=== PATIENT | female | born 1965 | race Caucasian/White ===

== ENCOUNTER → 2017-06-16 | Outpatient (CLI) | payer MEDICARE ==
[~2017-06-16] MED LIST: ADDE30TA PO; ALBU0.63 NEB; CYMB60CA PO; DEXI60CA3 PO; GABA250S PO; GABA800T PO; HYDR-3366 PO; LORA-392 PO; LORA0.5T PO; LORC10TA PO; LYRI50CA PO; LYRI50CA2 PO; OMEP20TA PO; OMEP20TA93 PO; OXYC1TAB36 PO; PERC10TA26 PO; PROM12.54 PO; PROM6.2518 PO; PROT40TA PO; VENTAER INH
[2017-06-16 10:05] LABS: AUTOMATED NEUTROPHIL # 5.6 TH/MM3 (1.8-7.7); BASOPHIL # 0.1 TH/MM3 (0-0.2); BASOPHIL % 0.8 % (0.0-2.0); EOSINOPHIL # 0.2 TH/MM3 (0-0.4); EOSINOPHIL % 2.9 % (0.0-4.0); HEMATOCRIT 38.2 % (35.0-46.0); HEMOGLOBIN 13.1 GM/DL (11.6-15.3); LYMPH % 17.3 % (9.0-44.0); LYMPHOCYTE # 1.3 TH/MM3 (1.0-4.8); MEAN CELL VOLUME 94.2 FL (80.0-100.0); MEAN CORPUSCULAR HEMOGLOBIN 32.4 PG (27.0-34.0); MEAN CORPUSCULAR HGB CONC 34.4 % (32.0-36.0); MONO % 5.7 % (0.0-8.0); MONOCYTE # 0.4 TH/MM3 (0-0.9); NEUT % 73.3 % (16.0-70.0); PLATELET COUNT 340 TH/MM3 (150-450); RED BLOOD COUNT 4.05 MIL/MM3 (4.00-5.30); RED CELL DISTRIBUTION WIDTH 13.8 % (11.6-17.2); WHITE BLOOD COUNT 7.6 TH/MM3 (4.0-11.0)
[2017-06-16 10:18] LABS: INTERNATIONAL NORMALIZED RATIO 0.9 RATIO; PROTHROMBIN TIME - PATIENT 9.4 SEC (9.8-11.6)
[2017-06-16 10:21] LABS: BILIRUBIN, URINE NEG (NEG); BLOOD, URINE NEG (NEG); GLUCOSE,URINE NEG (NEG); KETONE, URINE NEG (NEG); NITRITE,URINE NEG (NEG); PH, URINE 5.5 (5.0-8.5); URINE COLOR YELLOW (YELLW/STRAW); URINE LEUKOCYTE ESTERASE NEG (NEG)
[2017-06-16 10:29] LABS: ALBUMIN 3.6 GM/DL (3.4-5.0); ALT (GPT) 25 U/L (10-53); BICARBONATE 28.3 MEQ/L (21.0-32.0); BLOOD UREA NITROGEN 19 MG/DL (7-18); CALCIUM 9.2 MG/DL (8.5-10.1); CHLORIDE 110 MEQ/L (98-107); CREATININE 0.67 MG/DL (0.50-1.00); GLOMERULAR FILTRATION RATE 93 ML/MIN (>89); GLUCOSE,FASTING 94 MG/DL (74-99); SODIUM (NA) 142 MEQ/L (136-145)
--- NOTE | 2017-06-16 10:39 | RADRPT ---
EXAM DATE/TIME: 06/16/2017 10:04 [facility] COMPARISON: No previous studies available for comparison. INDICATIONS : Evaluate for pneumonia, pneumothorax or communicable disease. Pre op for cervical spine surgery 1-2-1 8. MEDICAL HISTORY : Chronic obstructive pulmonary disease. Carcinoma, lung. SURGICAL HISTORY : lower left lobe of lung removed. ENCOUNTER: Initial ACUITY: 1 day PAIN SCORE: 0/10 LOCATION: Bilateral chest FINDINGS: PA and lateral views of the chest demonstrate the lungs to be symmetrically aerated without evidence of mass, infiltrate or effusion. The cardiomediastinal contours are unremarkable. Osseous structure s are intact. Bilateral breast implants are present. CONCLUSION: No acute disease. Matty Wilkerson MD on June 16, 2017 at 10:37 Board Certified Radiologist. This report was verified electronically.
[2017-06-16 10:40] LABS: ALKALINE PHOSPHATASE 88 U/L (45-117); AST (GOT) 22 U/L (15-37); TOTAL BILIRUBIN ADULT 0.3 MG/DL (0.2-1.0); TOTAL PROTEIN 6.9 GM/DL (6.4-8.2)
--- NOTE | 2017-06-16 13:46 | EKG ---
Date Performed: 06/16/2017 Time Performed: 09:29:10 PTAGE: 52 years EKG: Sinus rhythm . Septal T wave changes are nonspecific Borderline ECG NO PREVIOUS TRACING DOCTOR: Amadou Brooks Interpretating Date/Time 06/16/2017 13:45:52
== END ==
LOC: CPRE 09:04
PROVIDERS: ATTEND Neurological Surgery
DX: Z01.812 Encounter for preprocedural laboratory examination (principal); Z01.810 Encounter for preprocedural cardiovascular examination; Z01.811 Encounter for preprocedural respiratory examination; M48.02 Spinal stenosis, cervical region; R94.31 Abnormal electrocardiogram [ECG] [EKG]
CPT/HCPCS: 36415; 71020; 80053; 81001; 85025; 85610; 85730; 93005

== ENCOUNTER 2017-09-24 09:05 | Day surgery (SDC) | payer MEDICARE ==
[~2017-09-24] VITALS: Ht 165.1 cm; Wt 61.7 kg
[~2017-09-24 09:05] MED LIST changes: +ACETAMINOPHEN 1000 MG/100 ML 0 ML IV ONE; +ARTIFICIAL TEARS OPTH OINT 3.5 APPLIC/3.5 GM TUBO ONE; -DEXI60CA3 PO; -GABA250S PO; -LORA-392 PO; -LORC10TA PO; -LYRI50CA2 PO; +MIDAZOLAM HCL 2 MG/2 ML VIAL ONE; -OMEP20TA PO; -PERC10TA26 PO; -PROM6.2518 PO; +PROPOFOL 500 MG/50 ML INJ 50 ML ONE; +SODIUM CHLOR 0.9% 1000 ML INJ 1,000 ML IV SCH
[2017-09-24] MEDS ORDERED: PHENYLEPH/NS 1000 MCG/10 ML SYR IV ONE (09:06)
[2017-09-24] MEDS ORDERED: GLYCOPYRROLATE 1 MG/5 ML SYRINGE IV PUSH ONE (09:06)
[2017-09-24] MEDS ORDERED: ceFAZolin INJ 1,000 MG VIAL IV ONE ×2 (09:06→11:51)
[2017-09-24] MEDS ORDERED: LIDOCAINE HCL 1% PF 5 ML SYRINGE OTHER ONE (09:06)
[2017-09-24] MEDS ORDERED: ONDANSETRON HCL 4 MG/2 ML VIAL IV ONE (09:06)
[2017-09-24] MEDS ORDERED: ROCURONIUM INJ 50 MG/5 ML SYRINGE IV PUSH ONE (09:06)
[2017-09-24] MEDS ORDERED: PROPOFOL 200 MG/20 ML AMP IV ONE (09:06)
[2017-09-24] MEDS ORDERED: LACTATED RINGER'S 1000 ML INJ 2,000 ML IV ONE (09:06)
[2017-09-24] MEDS ORDERED: ePHEDrine/NS 25 MG/5 ML SYRINGE IV ONE (09:06)
[2017-09-24] MEDS ORDERED: KETOROLAC TROMETHAMINE 30 MG/ML (IVP) VIAL IV PUSH ONE (09:06)
[2017-09-24] MEDS ORDERED: DEXAMETHASONE SOD PHOS 4 MG/ML VIAL IV ONE (09:06)
[2017-09-24] MEDS ORDERED: CHLORHEXIDINE GLUCONATE 2 % 1 PACK (2 CLOTHS) TOPICAL PRN (09:30)
[2017-09-24] MEDS ORDERED: POVIDONE IODINE 5% (ANTISEPSIS KIT) 4 APPLICATIONS EACH NARE PRN (09:30)
[2017-09-24] MEDS ORDERED: VANCOMYCIN 1 GM/200 ML PREMIX IV SCH (09:30)
[2017-09-24] MEDS ORDERED: METOPROLOL TARTRATE 25 MG TAB PO PRN (09:30)
[2017-09-24] MEDS ORDERED: SODIUM CHLORID 0.9% 500 ML IV PRN (09:30)
[2017-09-24] MEDS ORDERED: LACTATED RINGER'S 1000 ML IV PRN (09:30)
[2017-09-24 10:15] LABS: PROTHROMBIN TIME - PATIENT 9.7 SEC (9.8-11.6)
[2017-09-24] MEDS ORDERED: ACETAMINOPHEN 1000 MG/100 ML 100 ML IV ONE (10:20)
[2017-09-24] MEDS ORDERED: PROPOFOL 500 MG/50 ML INJ 100 ML ONE (10:20)
[2017-09-24] MEDS ORDERED: ARTIFICIAL TEARS OPTH OINT 3.5 APPLIC/3.5 GM TUBO ONE (10:20)
[2017-09-24 10:23] LABS: BILIRUBIN, URINE NEG (NEG); BLOOD, URINE NEG (NEG); GLUCOSE,URINE NEG (NEG); KETONE, URINE NEG (NEG); MUCUS URINE FEW /lpf (OCC); NITRITE,URINE NEG (NEG); PH, URINE 5.5 (5.0-8.5); URINE COLOR YELLOW (YELLW/STRAW); URINE LEUKOCYTE ESTERASE NEG (NEG)
[2017-09-24] MEDS ORDERED: diphenhydrAMINE HCL 50 MG/ML VIAL ONE (10:55)
[2017-09-24] MEDS ORDERED: GELFOAM SIZE 100 TOPICAL ONE (11:51)
[2017-09-24] MEDS ORDERED: THROMBIN (TOPICAL) 5,000 UNIT VIAL TOPICAL ONE ×2 (11:53→14:02)
[2017-09-24] MEDS ORDERED: MICROFIBRILLAR COLLAGEN HEMOSTAT 70 X 35 MM BANDAGE TOPICAL ONE (11:53)
[2017-09-24] MEDS ORDERED: GENTAMICIN SULFATE 80 MG/2 ML VIAL IRRIGATION ONE (11:54)
[2017-09-24] MEDS ORDERED: BACITRACIN TOP OINT 15 GM TUBE ONE (14:35)
[2017-09-24] MEDS ORDERED: DO NOT ADM ANY ANTICOAGULANT DRUGS PRN (14:50)
[2017-09-24] MEDS ORDERED: *morphine SULFATE 4 MG/ML PERIprocedure ONLY ONE ×3 (15:00→15:13)
[2017-09-24] MEDS ORDERED: MIDAZOLAM HCL 2 MG/2 ML VIAL ONE (15:02)
--- NOTE | 2017-09-24 15:05 | HHI.DCPOC ---
Discharge Care Plan Diagnosis: (1) Status post cervical arthrodesis Goals to Promote Your Health * To prevent worsening of your condition and complications * To maintain your health at the optimal level Directions to Meet Your Goals Take your medications as prescribed Follow your dietary instruction Follow activity as directed Keep your appointments as scheduled Take your immunizations and boosters as scheduled If your symptoms worsen call your PCP, if no PCP go to Urgent Care Center or Emergency Room Smoking is Dangerous to Your Health. Avoid second hand smoke Call the 24-hour hour crisis hotline for domestic abuse at Eboni Hannah Sep 24, 2017 15:05
[2017-09-24] MEDS ORDERED: *MEPERIDINE 25 MG INJ VIAL PERIprocedural Use ONLY ONE (15:13)
--- NOTE | 2017-09-24 15:22 | RADRPT ---
EXAM DATE/TIME: 09/24/2017 11:49 [facility] COMPARISON: No previous studies available for comparison. INDICATIONS : Post-op C4-C5 and C5-C6 artificial disk placement. MEDICAL HISTORY : None. SURGICAL HISTORY : None. ENCOUNTER: Initial ACUITY: 1 day PAIN SCORE: Non-responsive. LOCATION: neck FINDINGS: 2 images recorded digitally the operating room using C-arm after placement of the interspace devices at C4-5 and C5-6. CONCLUSION: Intraoperative images. Tim Maciel MD on September 24, 2017 at 15:19 Board Certified Radiologist. This report was verified electronically.
--- NOTE | 2017-09-24 15:23 | RADRPT ---
EXAM DATE/TIME: 09/24/2017 11:49 [facility] COMPARISON: No previous studies available for comparison. INDICATIONS : C4-C5 and C5-C6 artificial disk placement. Level localization. MEDICAL HISTORY : None. SURGICAL HISTORY : None. ENCOUNTER: Initial ACUITY: 1 day PAIN SCORE: Non-responsive. LOCATION: neck FINDINGS: A single lateral view of the cervical spine is recorded digitally in the operating room using C-arm a nd demonstrating a localization probe at the C5-6 level. CONCLUSION: Intraoperative image. Tim Maciel MD on September 24, 2017 at 15:20 Board Certified Radiologist. This report was verified electronically.
[2017-09-24] MEDS ORDERED: cloNIDine HCL 0.1 MG TAB PO/NG PRN (15:30)
[2017-09-24] MEDS ORDERED: ACETAMINOPHEN 325 MG TAB PO PRN (15:30)
[2017-09-24] MEDS ORDERED: RESP: ALBUTEROL 2.5 MG/3 ML NEB (PRN) INH (15:30)
[2017-09-24] MEDS ORDERED: ONDANSETRON HCL 4 MG/2 ML VIAL IV PRN (15:30)
[2017-09-24] MEDS ORDERED: MENTHOL LOZENGE BUCCAL PRN (15:30)
[2017-09-24] MEDS ORDERED: CYCL10TA PO (15:31)
[2017-09-24] MEDS ORDERED: HYDR-3583 PO (15:31)
[2017-09-24] MEDS ORDERED: IBUP1TAB7 PO (15:31)
[2017-09-24 16:45] VITALS: BP 141/83; PULSE 74; RESP 18; TEMP 97.6; O2SAT 95
[2017-09-24] MEDS ORDERED: MORPHINE SULFATE 2 MG/ML SYRINGE IV PUSH PRN (17:00)
[2017-09-24] MEDS ORDERED: ACETAMINOPHEN/HYDROcodone 325 MG/10 MG TAB PO PRN (17:00)
[2017-09-24] MEDS ORDERED: MAGNESIUM HYDROXIDE SUSP 30 ML CUP PO PRN (17:00)
[2017-09-24] MEDS ORDERED: CYCLOBENZAPRINE HCL 10 MG TAB PO PRN (17:00)
[2017-09-24] MEDS ORDERED: DEXTROSE 50% IN WATER 50 ML VIAL(D50) IV PUSH PRN (17:00)
[2017-09-24] MEDS: MORPHINE SULFATE 4 MG/ML INJ IV PUSH PRN ×2 (17:00→19:00)
[2017-09-24] MEDS ORDERED: BISACODYL 10 MG SUPP RECTAL PRN (17:00)
[2017-09-24] MEDS ORDERED: GLUCAGON 1 MG/ML VIAL OTHER PRN (17:00)
--- NOTE | 2017-09-24 17:11 | PD.OP ---
Operative Report Date of Surgery: Sep 24, 2017 Preoperative Diagnosis: C4-5, C5-6 disk herniations Postoperative Diagnosis: C4-5, C5-6 disk herniations Procedure: C4-5, C5-6 anterior cervical discectomy and arthroplasty using Mobi C Anesthesia: general endotracheal Surgeon: Guzman Miner Nuclear Technician(s): Radha Rod Operation and Findings: INDICATIONS FOR THE PROCEDURE Ms Gómez is a 52 year-old male who presented with intractable neck pain and clinical evidence of C5 and C6 cervical radiculopathy. She was found to have disk protusions at C4-5 and C5-6 causing significant mass effect on the neural structures. She failed multiple modalities of nonsurgical treatment including phsycal therapy, analgesics, antiinflammatories, and pain management with mulriple epidural steroid injections. The severity of his pain and symptoms were affecting her quality of life. An anterior cervical discectomy and arthroplasty were indicated. The [id number] details of the surgical procedure, indications, alternatives, risks and potential complications were fully discussed with the patient. The patient fully understood. All his questions were answered. No guarantees were given. He voiced requesting the procedure and signed informed consents. Dr Condon was offered the alternative of delaying the procedure and continuing with nonsurgical management. DETAILS OF THE SURGICAL PROCEDURE SURGICAL APPROACH A skin incision was made along the middle cervical crease with a #10 blade. The dissection was carried out through the platysma exposing the sternocleidomastoid muscle. The cervical spine was approached following the fascial layers of the neck, just medial to the anterior border of the sternocleidomastoid and carotid sheath by a combination of sharp and dull dissection. The omohyoid muscle was identified and carefully dissected laterally and the deep cervical fascia was carefully opened. The longus colli muscles were retracted to each side of the midline. A marker was placed at the c5-6 disc space and a cross-table lateral x-ray performed with a C-arm. SURGICAL DECOMPRESSION In order to decompress the anterior surface of the spinal cord it was necessary to perform a microsurgical resection of the disk. At this point in the procedure the operating microscope was draped in the usual sterile fashion and brought to the field. The rest of the surgical procedure was performed using microdissection technique with the exception of the closure. Initially C5-6 was approached. Under the operative microscopic, an anterior osteophytic spur was carefully removed using the Leksell, and a self-retaining retractor was placed underneath the longus colli muscle. The annulus was incised with a #15 blade and microdiscectomy was then carefully carried out using angled curets and pituitary forceps. The patient had a osteophitic spurr with a foraminal disk herniation at 5-6 which was producing mass affect on the exiting nerve roots. This was carefully dissected with a nerve hock and resected with a think foot plate 2 mm Kerrison under high magnification. The posterior longitudinal ligament was then elevated with an angled curet and incised with a 15 bladed knife. A careful resection of the posterior longitudinal ligament was carried out using a thin footplate 2 mm Kerrison. Extruded disk fragments causing mechanical compression over the exiting C6 nerve root were carefully dissected. The decompression was then carried out laterally, and a bilateral foraminotomy was performed with a 2 mm thin foot Kerrison. The epidural space was the systematically assessed with a nerve hook in search for disk fragments of scar tissue. An excellent decompression was achieved in both, the dural sac and bilateral exiting nerve roots. The incision was then irrigated with a large amount of antibiotic solution INTERBODY ARTHROPLASTY In order to avoid collapse of the disk space which would result in bilateral foraminal stenosis, and in order to maintain disk space height and function minimally development of adjacent level degeneration, it was necessary to place an interbody device. At this point of the procedure, gentle distraction was applied. The size of the interbody device was then assessed using a trial, and a cross table xray was done for confirmation of appropriate size and position of the device. Then the disk space was irrigated with antibiotic solution, and a 15mm by 6mm Mobi C artificial disk was carefully impacted into the disc space C5-6. An excellent position of the device was achieved. This was confirmed anatomically by feeling the space posterior to the implant and distance to the anterior surface of the dural sac. Radiological confirmation of the position was performed with a cross table AP and lateral X-ray views, performed with the C-arm. SURGICAL DECOMPRESSION AT C4-5 At C4-5 an anterior osteophytic spur was carefully removed using the Leksell, and a self-retaining retractor was placed underneath the longus colli muscle. The annulus AT c6-7 was incised with a #15 blade and microdiscectomy was then carefully carried out using angled curets and pituitary forceps. The patient had a osteophitic spurr with a foraminal disk herniation at 5-6 which was producing mass affect on the exiting nerve roots. This was carefully dissected with a nerve hock and resected with a think foot plate 2 mm Kerrison under high magnification. The posterior longitudinal ligament was then elevated with an angled curet and incised with a 15 bladed knife. A careful resection of the posterior longitudinal ligament was carried out using a thin footplate 2 mm Kerrison. A disk protusion was found causing mechanical compression over the exiting C7 nerve root. The decompression was then carried out laterally, and a bilateral foraminotomy was performed with a 2 mm thin foot Kerrison. The epidural space was the systematically assessed with a nerve hook in search for disk fragment. An excellent decompression was achieved in both, the dural sac and bilateral exiting nerve roots. The incision was then irrigated with antibiotic solution INTERBODY ARTHROPLASTY at C4-5 At this point of the procedure, gentle distraction was applied. The size of the interbody device was then assessed using a trial, and a cross table xray was done for confirmation of appropriate size and position of the device. Then the disk space was irrigated with antibiotic solution, and a 15mm by 6mm Mobi C artificial disk was carefully impacted into the disc space C4-C5. An excellent position of the device was achieved. This was confirmed anatomically by feeling the space posterior to the implant and distance to the anterior surface of the dural sac. Radiological confirmation of the position was performed with a cross table AP and lateral X-ray views, performed with the C-arm. COMPLETION OF THE SURGICAL PROCEDURE Once that each interbody device was in an appropriate position, the distraction was discontinued. The position of the device as well as alignment of the spine were assessed anatomically by direct visualization, and radiologically by performing an AP and lateral X-ray of the cervical spine with the C-arm. The position of both implants was excellent. The incision was irrigated with several liters of antibiotic solution. Hemostasis was achieved with a bipolar. The incision was then closed in layers. 3-0 Vicryl with interrupted sutures was used to close the platysma and subcutaneous tissue. The skin was closed with 4-0 running subcuticular Vicryl and Dermabond was applied to the skin. At the end of the procedure the sponge, needle and instrument counts were all correct. The estimated blood loss was less than 50 cc. No blood transfusion was given. No intraoperative complications occurred. The patient received prophylactic antibiotics. The patient was then extubated and transferred to the recovery room in stable condition. Guzman Miner MD Sep 24, 2017 17:11
[2017-09-24] MEDS: DEXAMETHASONE SOD PHOS 4 MG/ML VIAL IV PUSH SCH ×2 (17:14→23:48)
[2017-09-24] MEDS: SODIUM CHLOR 0.9% 1000 ML INJ 1,000 ML IV SCH (17:15)
[2017-09-24 20:00] VITALS: BP 145/86; PULSE 82; RESP 16; TEMP 97.7; O2SAT 95
[2017-09-24] MEDS: DOCUSATE SODIUM 100 MG CAP PO SCH (21:00)
[2017-09-24] MEDS ORDERED: CHLORHEXIDINE GLUCONATE 4% SOLN 120 ML BTL TOP SCH (21:00)
[2017-09-24] MEDS: IBUPROFEN 600 MG TAB PO SCH (21:26)
[2017-09-24] MEDS: CYCLOBENZAPRINE HCL 10 MG TAB PO SCH (21:26)
[2017-09-24] MEDS: CEFAZOLIN INJ 2,000 MG in SODIUM CHLORIDE 0.9% INJ 100 ML IV SCH (21:27)
[2017-09-24] MEDS: ACETAMINOPHEN/HYDROcodone 325 MG/10 MG TAB PO PRN (21:27)
[2017-09-25] VITALS: BP 138/83; PULSE 69; RESP 18; TEMP 97.6; O2SAT 95
[2017-09-25] MEDS: SODIUM CHLOR 0.9% 1000 ML INJ 1,000 ML IV SCH ×4 (00:58→11:56)
[2017-09-25] MEDS: MORPHINE SULFATE 4 MG/ML INJ IV PUSH PRN (02:55)
[2017-09-25 04:00] VITALS: BP 134/73; PULSE 55; RESP 18; TEMP 97.2; O2SAT 94
[2017-09-25] MEDS: DEXAMETHASONE SOD PHOS 4 MG/ML VIAL IV PUSH SCH ×2 (05:01→11:56)
[2017-09-25] MEDS: CEFAZOLIN INJ 2,000 MG in SODIUM CHLORIDE 0.9% INJ 100 ML IV SCH ×2 (05:03→11:56)
[2017-09-25] MEDS: IBUPROFEN 600 MG TAB PO SCH ×2 (05:05→13:31)
[2017-09-25] MEDS: CYCLOBENZAPRINE HCL 10 MG TAB PO SCH ×2 (05:05→13:31)
[2017-09-25] MEDS: ACETAMINOPHEN/HYDROcodone 325 MG/10 MG TAB PO PRN ×3 (05:20→13:34)
[2017-09-25] MEDS ORDERED: KETOROLAC TROMETHAMINE 60 MG/2 ML (IM) VIAL IM ONE (08:00)
[2017-09-25 08:11] VITALS: BP 151/81; PULSE 60; RESP 20; TEMP 97.5; O2SAT 94
[2017-09-25] MEDS ORDERED: PANTOPRAZOLE SOD 40 MG DELAYED RELEASE TAB PO SCH (09:00)
[2017-09-25] MEDS ORDERED: PANTOPRAZOLE SODIUM 40 MG VIAL IVP SCH (09:00)
[2017-09-25] MEDS: DOCUSATE SODIUM 100 MG CAP PO SCH (09:30)
[2017-09-25 11:30] VITALS: O2SAT 95
[2017-09-25 11:34] VITALS: BP 135/74; PULSE 70; RESP 20; TEMP 98.2; O2SAT 96
[2017-09-25] MEDS ORDERED: WALKER WHEELS/F1 MIS (12:45)
--- NOTE | 2017-09-25 12:51 | HHI.NSPN ---
History Chief Complaint: mild incisional pain Interval History 09/25/17: Pt s/p C4-5, C5-6 anterior cervical discectomy and arthroplasty using Mobi C on 09/24/17. she states she has mild incisional discomfort. She has some pain radiating into the lateral aspect of the RUE and into her hand. She moves all 4 extremities well. She ambulates with a walker. Cervical collar in place. Review of Systems General: Negative for: fever, chills, insomnia Respiratory: Negative for: shortness of breath, cough, sputum Cardiovascular: Negative for: chest pain Gastrointestinal: Negative for: nausea, vomitting, diarrhea, constipation Exam Results Vital Signs Date Time Temp Pulse Resp B/P (MAP) Pulse Ox O2 Delivery O2 Flow Rate FiO2 09/25/17 11:34 98.2 70 20 135/74 (94) 96 09/25/17 11:30 21 09/24/17 15:30 Nasal Cannula 2 Intake and Output 09/25/17 09/25/17 09/26/17 08:00 16:00 00:00 Intake Total 920 ml Balance 920 ml Physical Examination General: Pt resting in bed in NAD. Eyes: Pupils equal. Sclera anicteric. Resp: CTA bilaterally Heart: NSR no murmurs Abd: soft positive bs Skin: No cyanosis or erythema Muscle: Moves all 4 extremities well. Neuro: Pt awake and alert. Follows commands well. Speech clear and appropriate. Lab, Micro, Other Results Last Impressions Cervical Spine X-Ray 09/24/17 0000 Signed Impressions: Service Date/Time: Sunday, September 24, 2017 11:49 - CONCLUSION: Intraoperative image. Tim Maciel MD Medical Decision Making Impression and Plan A: 52 y/o FM s/p C4-5, C5-6 anterior cervical discectomy and arthroplasty using Mobi C P: D/C home Follow up with Dr. Miner as scheduled. Continue with cervical collar. Domenic Molina Sep 25, 2017 12:51 pm
--- NOTE | 2017-09-25 16:06 | HHI.DS ---
Discharge Summary Admission Date 09/24/17 Discharge Date: Sep 25, 2017 Admitting Diagnosis s/p anterior cervical discectomy with arthroplasty (1) Status post cervical arthrodesis ICD Code: Z98.1 - Arthrodesis status Brief History Ms Gómez is a 52 year-old male who presented with intractable neck pain and clinical evidence of C5 and C6 cervical radiculopathy. She was found to have disk protrusions at C4-5 and C5-6 causing significant mass effect on the neural structures. She failed multiple modalities of nonsurgical treatment including physical therapy, analgesics, antiinflammatories, and pain management with multiple epidural steroid injections. The severity of his pain and symptoms were affecting her quality of life. An anterior cervical discectomy and arthroplasty were indicated. Significant Findings Laboratory Tests Test 09/24/17 09:26 09/24/17 09:33 Urine Mucus FEW /lpf (OCC) Prothrombin Time 9.7 SEC (9.8-11.6) Imaging Last Impressions Cervical Spine X-Ray 09/24/17 0000 Signed Impressions: Service Date/Time: Sunday, September 24, 2017 11:49 - CONCLUSION: Intraoperative image. Tim Maciel MD Hospital Course Ms. Gómez underwent a C4-5, C5-6 anterior cervical discectomy and arthroplasty using Mobi C on Sep 24, 2017 for C4-5, C5-6 disk herniations. Her surgery went well without complications. She was discharged home in stable conditions. Pt Condition on Discharge: Stable Discharge Disposition: Discharge Home Discharge Instructions DIET: Follow Instructions for: Heart Healthy Diet ADDITIONAL Diet Instructions: Soft foods, advance as tolerated ACTIVITIES You can perform: Weight Bearing As Shelley ADDITIONAL Activity Instructio: Avoid strenuous activities, heavy lifting over 5 lbs, overhead activities, repetitive bending, twisting, pushing, pulling or any activities which might result in stress over the spine. Avoid situation that will put at risk for falls. Use assistive device as needed for walking. Wear cervical collar at all times, may remove only with meals. New Medications: Ibuprofen (Ibuprofen) 800 Mg Tab 800 MG PO Q8H PRN for PAIN SCALE 1 TO 10, #90 TAB 0 Refills Walker with Front Wheels (Walker with Front Wheels) 1 Mis Mis EA .XX DIRECTED, #1 0 Refills Cyclobenzaprine (Flexeril) 10 Mg Tab 10 MG PO Q8H PRN for MUSCLE SPASM, #90 TAB 0 Refills Hydrocodone/Acetaminophen (Hydrocodone-Acetamin 10-325 mg) 10 Mg-325 Mg Tablet 1 TAB PO Q8HR PRN for PAIN SCALE 1 TO 10, #60 TAB-CAP 0 Refills Continued Medications: Albuterol 18 GM Inh (Ventolin Hfa 18 GM Inh) 90 Mcg/Act Aer 1 PUFF INH Q4H PRN for SHORTNESS OF BREATH, #1 INHALER 0 Refills Albuterol Neb (Albuterol Neb) 0.63 Mg/3 Ml Neb 0.63 MG NEB Q4HR NEB PRN for SHORTNESS OF BREATH, #25 NEBULE 0 Refills Amphetamine-Dextroamphetamine (Adderall) 30 Mg Tab 30 MG PO BID for Hyperactivity Control, #60 TAB 0 Refills Avoid late evening doses. Space doses at least 4 to 6 hours if more than once/day dosing. Gabapentin (Gabapentin) 800 Mg Tab 800 MG PO TID, #90 TAB 0 Refills Hydrocodone-Acetaminophen (Naco) 10-325 Mg Tab 1 TAB PO Q4H PRN for PAIN, TAB 0 Refills Lorazepam (Lorazepam) 0.5 Mg Tab 0.5 MG PO HS PRN for ANXIETY AND/OR INSOMNIA, TAB 0 Refills Omeprazole (Omeprazole) 20 Mg Tab 20 MG PO DAILY, #30 TAB 0 Refills Oxycodone-Acetaminophen (Oxycodone-Acetaminophen) 10-325 mg Tab 1 TAB PO Q4H PRN for PAIN, TAB 0 Refills Pantoprazole (Protonix) 40 Mg Tab 40 MG PO DAILY for Reflux, #30 TAB 0 Refills Promethazine (Promethazine) 12.5 Mg Tab 12.5 MG PO Q4H PRN for NAUSEA OR VOMITING, TAB 0 Refills Eboni Hannah Sep 25, 2017 16:06
== END 2017-09-25 14:30 | disposition home health service (06) ==
LOC: HSDC 09:05 → N05B 16:23 → HSDC 09-25 14:30
PROVIDERS: ATTEND Neurological Surgery
DX: M50.11 Cervical disc disorder with radiculopathy, high cervical region (principal); M48.02 Spinal stenosis, cervical region; I25.10 Atherosclerotic heart disease of native coronary artery without angina pectoris; J44.9 Chronic obstructive pulmonary disease, unspecified; Z01.812 Encounter for preprocedural laboratory examination
CPT/HCPCS: 00600; 20937; 22551; 22552; 22845; 72020; 72040; 76000; 81001; 85610; 85730; 94150; 97163; C1889; G8987; G8988; J0131; J0690; J1100; J1200; J1580; J1885; J2175; J2250; J2270; J2370; J2405; J3010; J3370; J7030; J7120; L0150; L0172